=== PATIENT | female | born 1935 | race Caucasian/White ===

== ENCOUNTER 2019-01-12 05:55 | Inpatient (IN) | payer MEDICARE, OTHER | END 2019-01-14 13:00 | disposition home or self-care (01) | LOC: PAS IN 05:55 → ORTHO 4S 12:00 | PROC: 0SR90J9 Replacement of Right Hip Joint with Synthetic Substitute, Cemented, Open Approach (ICD-10-PCS; principal; 2019-01-12 09:12) | DX: M16.11 Unilateral primary osteoarthritis, right hip (principal); D62 Acute posthemorrhagic anemia; I48.2 Chronic atrial fibrillation ==

== ENCOUNTER 2022-05-24 06:32 | Day surgery (SDC) | payer MEDICARE, OTHER ==
[2022-05-20 11:14] LABS: EOSINOPHILS # (AUTO) 0.1 X10'3 (0-0.9); EOSINOPHILS % (AUTO) 1.9 % (0-6); LYMPHOCYTES # (AUTO) 0.7 X10'3 (1.1-4.8); LYMPHOCYTES % (AUTO) 18.7 % (21-51); MEAN CORPUSCULAR HEMOGLOBIN 32.4 PG (27.0-31.0); MEAN CORPUSCULAR HGB CONC 32.8 g/dL (33.0-36.5); MEAN PLATELET VOLUME 9.2 FL (7.4-10.4); MONOCYTES # (AUTO) 0.5 X10'3 (0-0.9); MONOCYTES % (AUTO) 12.6 % (2-12); NEUTROPHILS # (AUTO) 2.4 X10'3 (1.8-7.7); NEUTROPHILS % (AUTO) 65.8 % (42-75); PRE OP HEMATOCRIT 33.4 % (35.0-45.0); PRE OP PLATELET COUNT 177 X10'3 (140-440); RED BLOOD COUNT 3.37 X10'6 (4.20-5.60); RED CELL DISTRIBUTION WIDTH 18.5 % (11.5-14.5)
[2022-05-20 11:16] LABS: PRE OP HEMOGLOBIN 10.9 g/dL (12.0-16.0)
[2022-05-20 11:28] LABS: PRE OP PROTIME 15.5 SECONDS (9.0-12.0)
[2022-05-20 11:29] LABS: ALBUMIN 3.9 G/DL (3.4-5.0); ALBUMIN/GLOBULIN RATIO 1.1 (1.1-1.5); ALKALINE PHOSPHATASE 99 IU/L (46-116); BLOOD UREA NITROGEN 29 MG/DL (7-18); BUN/CREATININE RATIO 26.4 (6.6-38.0); CALCIUM 9.2 MG/DL (8.5-10.1); CHLORIDE 106 MMOL/L (99-107); PRE OP ALT 16 U/L (30-65); PRE OP ANION GAP 9 (8-16); PRE OP AST 20 U/L (10-37); PRE OP BILIRUB, TOTAL 0.7 MG/DL (0.0-1.0); PRE OP GLUCOSE 98 MG/DL (70-104); PRE OP POTASSIUM 4.1 MMOL/L (3.4-5.1); PRE OP SODIUM 144 MMOL/L (135-145); TOTAL CARBON DIOXIDE 29.2 MMOL/L (24-32); TOTAL PROTEIN 7.4 G/DL (6.4-8.2); eGFR 47 ML/MIN
[2022-05-20 11:31] LABS: PRE OP INR 1.5 INR
[~2022-05-24] VITALS: Ht 167.6 cm; Wt 62.9 kg
[2022-05-24] VITALS (17 sets, daily range): BP systolic 105–161; BP diastolic 45–86
[~2022-05-24 06:32] MED LIST: AMLO10TA13 PO; CAPE500T15; HYDR-3964 PO; LEVO50TA8 PO; LOSA100T57 PO; WARF1TAB83 PO; famotidine 20mg tablet PO ONE; normal saline 1000ml 1,000 ML IV SCH; ringers solution, lacted 1,000 ML IV SCH
[2022-05-24] MEDS ORDERED: morphine 4 MG/ML inj SYRINge IV PRN (07:20)
[2022-05-24] MEDS ORDERED: hydrALAZINE 20mg/ml inj. IV PRN (07:20)
[2022-05-24] MEDS ORDERED: ondansetron/PF 4mg/2ml inj IV PRN (07:20)
[2022-05-24] MEDS ORDERED: labetalol 20mg/4ml (5mg/ml) syringe IV PRN (07:20)
[2022-05-24] MEDS ORDERED: ringers solution, lacted 1,000 ML IV SCH (07:20)
[2022-05-24] MEDS ORDERED: morphine 2 MG/ML inj. syringe IV PRN (07:20)
[2022-05-24] MEDS ORDERED: fentaNYL/PF 50MCG/1 ML 2ML syringe IV PRN ×2 (07:20)
[2022-05-24] MEDS ORDERED: midazolam 1 mg/ML 2ml injection ONE (08:34)
[2022-05-24] MEDS ORDERED: fentaNYL/PF 50MCG/1 ML 2ML syringe ONE (08:34)
[2022-05-24] MEDS ORDERED: LIDOcaine 1% (10mg/ml)w/preservative inj. 20ml MDV ONE (08:45)
[2022-05-24] MEDS ORDERED: dexamethasone sod phosphate 10mg/ml inj ONE (08:45)
[2022-05-24] MEDS ORDERED: normal saline 1000ml 1,000 ML IV SCH (08:45)
[2022-05-24] MEDS ORDERED: sevoflurane 250ml liquid IH ONE (08:45)
[2022-05-24] MEDS ORDERED: ondansetron/PF 4mg/2ml inj ONE (08:45)
[2022-05-24] MEDS ORDERED: ePHEDrine 50MG/ML INJ. ONE (09:36)
[2022-05-24] MEDS ORDERED: propofol inj 20 ML IV ONE (09:39)
[2022-05-24] MEDS ORDERED: glycopyrrolate 0.2mg/ml inj ONE (09:40)
[2022-05-24] MEDS ORDERED: neostigmine methylsulfate 1 MG/ML 10ml vial ONE (09:40)
[2022-05-24] MEDS ORDERED: LIDOcaine 1%/PF 5ML 10 MG/ML VIAL ONE (09:40)
[2022-05-24] MEDS ORDERED: rocuronium 10mg/ml inj IV ONE (09:40)
[2022-05-24] MEDS ORDERED: iohexol 300mg/ml 100ml inj. ONE (10:09)
--- NOTE | 2022-05-24 10:42 | NUR ---
Received from OR via [facility], accompanied by Anesthesiologist and report given by DR. VINES Anesthesiologist. PATIENT UNCONSCIOUS WITH ORAL AIRWAY , NO S/S OF PAIN, V/S WNL, SCD ON , PIV 20G L WRIST, DRESSING OPEN AIR TO RIGHT LATERAL ABDOMEN CDI. APPLIED BANDAID. Addendum: 05/24/22 at 1103 by Rohan Mckeon RN Amended: Links added.
--- NOTE | 2022-05-24 11:42 | NUR ---
PATIENT TAKEN TO ROOM WITH ALL BELONGINGS AND HOOKED UP TO MONITORS IN ROOM AND GIVEN CALL LIGHT, REPORT GIVEN TO RN WHO HAS TAKEN OVER PATIENT CARE. Addendum: 05/24/22 at 1144 by Rohan Mckeon RN Amended: Links added.
[2022-05-24] MEDS ORDERED: HYDROcodone/acetaminophen 10/325mg tab PO ONE (11:55)
[2022-05-24] MEDS ORDERED: HYDR-3965 PO (12:04)
--- NOTE | 2022-05-24 15:20 | NUR ---
PT DISCHARGED IN STABLE CONDITION. PIV DC'D CANULA INTACT. ALL BELONGINGS SENT HOME WITH PT. DRESSING RIGHT SIDE CDI, NO BLEEDING NOTED. DR ALTAMIRANO IS AWARE OF PTS LOW HEART RATE, NO ORDERS RECEIVED. PT WILL FOLLOW UP WITH ONCOLOGIST. PER DR. ALTAMIRANO PT TO RESUME COUMADIN ON FRIDAY IF NO SIGNS OF BLEEDING AND NOT HAVING ABDOMINAL PAIN. CONTINUE ALL OTHER HOME MEDS. PT AND DAUGHTER VERBALIZE UNDERSTANDING OF D/C INSTRUCTIONS.
== END 2022-05-24 15:20 | disposition home or self-care (01) ==
LOC: PAS 06:32
PROVIDERS: ATTEND Radiology Diagnostic Radiology
DX: K76.89 Other specified diseases of liver (principal); C78.7 Secondary malignant neoplasm of liver and intrahepatic bile duct; C18.2 Malignant neoplasm of ascending colon; I48.91 Unspecified atrial fibrillation; E03.9 Hypothyroidism, unspecified; E78.5 Hyperlipidemia, unspecified; I10 Essential (primary) hypertension; G62.9 Polyneuropathy, unspecified; Z90.49 Acquired absence of other specified parts of digestive tract; Z79.899 Other long term (current) drug therapy; Z96.642 Presence of left artificial hip joint; Z79.01 Long term (current) use of anticoagulants; Z87.891 Personal history of nicotine dependence
CPT/HCPCS: 36415; 47000; 47382; 77012; 77013; 80053; 82948; 85025; 85610; 85730; 86870; 86885; 86900; 86901; 88341; 88342; 93005; J1100; J2250; J2270; J2405; J2704; J2710; J3010; J3490; J7030; J7120; Q9967; Z7512; 74160; 88307